=== PATIENT | female | born 1930 | race Caucasian/White ===

== ENCOUNTER 2016-10-09 17:40 | Emergency (ER) | payer OTHER ==
--- NOTE | 2016-10-09 17:47 | PDOC ---
History of Present Illness <John Arredondo - Last Filed: 10/09/16 19:12> - History of Present Illness Initial Comments: 10/09/16 18:14 The patient is a 86 year old female, with a significant past medical history of DVT (in 40 years ago), who presents to the emergency department with nonradiating pain to posterior aspect of left knee since last night. She states she noticed the pain to her posterior left knee when she got up from sitting position. There was no recent falls, trauma, injuries. She reports the pain is exacerbated with flexion of her knee. She reports taking tylenol at 12pm today with little improvement of her pain. She reports a slight increase in swelling to her bilateral lower extremities, more prominent in the left than the right. She denies chest pain, shortness of breath,cough, hemoptysis, headache and dizziness. She denies fever, chills, nausea, vomit, diarrhea and constipation. Allergies: NKDA Past surgical history: hernia repair x6, colon resection Social history: denies toxic habits PCP - Dr. Young <Opal Sánchez - Last Filed: 10/09/16 20:31> <Mathew Garcia - Last Filed: 10/10/16 04:23> - General Chief Complaint: Pain Stated Complaint: LEFT KNEE PAIN Time Seen by Provider: 10/09/16 17:43 Past History <John Arredondo - Last Filed: 10/09/16 19:12> <Opal Sánchez - Last Filed: 10/09/16 20:31> <Mathew Garcia - Last Filed: 10/10/16 04:23> - Past Medical History Allergies/Adverse Reactions: Allergies Allergy/AdvReac Type Severity Reaction Status Date / Time Penicillins Allergy Verified 10/09/16 17:43 Home Medications: Ambulatory Orders NK [No Known Home Medication] 10/09/16 Review of Systems - Review of Systems Able to Perform ROS?: Yes Comments:: 10/09/16 18:14 CONSTITUTIONAL: No reported: Fever, Chills, Diaphoresis, Generalized Weakness, Malaise, Loss of Appetite HEENT: No reported: Rhinorrhea, Nasal Congestion, Throat Pain, Throat Swelling, Difficulty Swallowing, Mouth Swelling, Ear Pain, Eye Pain, Visual Changes CARDIOVASCULAR: No reported: Chest Pain, Syncope, Palpitations, Irregular Heart Rate, Lightheadedness, RESPIRATORY: No reported: Cough, Shortness of Breath, SOB with Exertion, MUSCULOSKELETAL: (+) pain and swelling to left knee. No reported: Myalgia, Back pain, Neck Pain SKIN: No reported: Rash, Itching, Pallor HEMEATOLOGIC/IMMUNOLOGIC: No reported: Easy Bleeding, Easy Bruising, Lymphadenopathy, Frequent infections ENDOCRINE: No reported: Unexplained Weight Gain, Unexplained Weight Loss, Heat Intolerance , Cold Intolerance NEUROLOGIC: No reported: Headache, Focal Weakness, Paresthesias, Vertigo, Lightheadedness, Unsteady Gait, Seizure, Mental Status Changes, Incontinence PSYCHIATRIC: No reported: Anxiety, Depression <Opal Sánchez - Last Filed: 10/09/16 20:31> *Physical Exam - Vital Signs Last Vital Signs Temp Pulse Resp BP Pulse Ox 99 F 118 H 20 134/79 96 10/09/16 17:40 10/09/16 17:40 10/09/16 17:40 10/09/16 17:40 10/09/16 17:40 - Physical Exam Comments: 10/09/16 18:15 GENERAL: The patient is awake, alert, and fully oriented, Nontoxic - in no acute distress. HEAD: Normocephalic, atraumatic. EXTREMITIES: (+) trace edema b/l lower extremities,L>R, Minimal calf tenderness. Tenderness in posterior left knee. Normal range of motion, No clubbing or cyanosis. Neg homans test, NEUROLOGICAL: No facial assymetry, Normal speech, moving all 4 extremities spontaneously and symmetrically. PSYCH: Normal mood, normal affect. SKIN: Warm, Dry, normal turgor, <Opal Sánchez - Last Filed: 10/09/16 20:31> - Vital Signs Last Vital Signs Temp Pulse Resp BP Pulse Ox 99 F 110 H 20 134/79 96 10/09/16 17:40 10/09/16 18:44 10/09/16 17:40 10/09/16 17:40 10/09/16 17:40 <Mathew Garcia - Last Filed: 10/10/16 04:23> ED Treatment Course - RADIOLOGY Radiograph Interpretation: 10/09/16 20:31 EXAM: Venous Doppler imaging of the left lower extremity was read by Shawn Ansari MD at 19:42 EST HISTORY:Swelling and edema FINDINGS:Spectral color flow Doppler imaging of the venous system of the left lower extremity is negative for deep venous thrombosis. There is a popliteal cyst. IMPRESSION: Negative for deep venous thrombosis. Findings of a popliteal cyst T <Opal Sánchez - Last Filed: 10/09/16 20:31> Medical Decision Making - Medical Decision Making 10/09/16 17:58 86y F no known pmhx presents with atraumatic L knee pain, pain localized to posterior L knee with minial calf tenderness, pt does have history of DVT in remote past during . will obtain xray to r/o acute pathology and US to r/o dvt 10/09/16 19:12 will sign pt out to dr. garcia to fu with results and reassess the patient. <John Arredondo - Last Filed: 10/09/16 19:12> - Medical Decision Making 10/10/16 04:22 bakers cyst on sono no evidence of dvt plain films--no obvious acute fx though difficult to read secondary to chronic changes--hx not c/w fx APAP PCP fu <Mathew Garcia - Last Filed: 10/10/16 04:23> *DC/Admit/Observation/Transfer <John Arredondo - Last Filed: 10/09/16 19:12> - Attestations Scribe Attestion: 10/09/16 18:15 Documentation prepared by Opal Sánchez, acting as medical sonographer for John Arredondo MD, <Opal Sánchez - Last Filed: 10/09/16 20:31> <Mathew Garcia - Last Filed: 10/10/16 04:23> Diagnosis at time of Disposition: Popliteal cyst Qualifiers: Laterality: left Qualified Code(s): M71.22 - Synovial cyst of popliteal space [ Andrews], left knee - Discharge Dispostion Disposition: HOME Condition at time of disposition: Stable - Patient Instructions Printed Discharge Instructions: DI for Andrews's Cyst
[2016-10-09 17:49] VITALS: BP 134/79; TEMP 99; BMI 30.2
[2016-10-09 20:40] VITALS: PULSE 98
== END 2016-10-09 20:40 | disposition home or self-care (01) ==
LOC: EDBD 17:40 → FER 17:40
DX: M71.22 Synovial cyst of popliteal space [Baker], left knee (principal); Z86.718 Personal history of other venous thrombosis and embolism
CPT/HCPCS: 73560-TC-LT; 93971-TC; 99282-25